=== PATIENT | female | born 1950 | race Caucasian/White ===

== ENCOUNTER → 2016-05-10 | Outpatient (CLI) | payer MEDICARE ==
[2015-04-11 11:44] VITALS: BP 132/67
[~2016-05-10] MED LIST: ALEN70TA5 PO; AMLO2.5T PO; AZEL23SP NS; DOCU-27 PO; ESTR1PAT10 TP; GABA-585 PO; HYDR-2680 PO; HYDR25TA9 PO; METH500T7 PO; OMEP20TA PO; OMEP40CA5 PO; ONDA4TAB7 PO; OXYC-323 PO; TRAZ50TA15 PO
--- NOTE | 2016-05-10 16:15 | KCIC ---
PROCEDURE Two-view chest HISTORY Bronchitis, cough for 2 months COMPARISON None FINDINGS Two views of the chest are submitted. Heart size is considered within normal limits. There is no dependent pleural fluid or pneumothorax. There is perihilar bronchial wall thickening. There is some mild, mostly linear opacity of the left lung base. IMPRESSION There is likely mild atelectasis left lung base. There is perihilar hilar bronchial wall thickening, could be seen with bronchitis. Electronically signed by: Tien Lucero MD (May 10, 2016 16:14:01)
== END | disposition home or self-care (01) ==
LOC: KCIC 14:26
PROVIDERS: ATTEND Nurse Practitioner Family
DX: J40 Bronchitis, not specified as acute or chronic (principal); J98.11 Atelectasis
CPT/HCPCS: 71020

== ENCOUNTER → 2016-08-16 | Outpatient (CLI) | payer BC, MEDICARE ==
[2015-04-11 11:44] VITALS: BP 132/67
--- NOTE | 2016-08-16 15:55 | KCIC ---
PROCEDURE MRI study of the left thumb without contrast HISTORY Left thumb pain. Patient fell in March 2016. Shooting pain for 2 months. Avulsion fracture. TECHNIQUE Noncontrast MRI sequences of the left thumb were performed in all 3 planes. COMPARISON Radiographic study dated August 07, 2016. FINDINGS There is moderate primary degenerative osteoarthritis of the 1st carpal metacarpal joint with spurring and joint effusion and subchondral marrow signal abnormality. There is dorsal and lateral subluxation of the 1st proximal phalanx with respect to the trapezium bone. There is disruption of the lateral collateral ligament of the 1st carpal metacarpal joint. The small avulsion fracture fragment seen on the radiographic study is old. No acute appearing fracture is evident. There is a cyst of the proximal aspect of the 1st proximal phalanx. No adjacent bone marrow edema is seen. This communicates with the anterior articular surface. There is mild degenerative spurring and small joint effusion of the 1st metacarpal phalangeal joint consistent with mild primary degenerative osteoarthritis. No tenosynovitis or tendon tear is seen. IMPRESSION Subluxation of the 1st carpal metacarpal joint with a tear of the lateral collateral ligament. 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 Mild primary degenerative osteoarthritis of the 1st metacarpal phalangeal joint. A degenerative cyst of the 1st proximal phalanx is seen. Electronically signed by: Edgar Rush MD (Aug 16, 2016 15:54:10)
== END | disposition home or self-care (01) ==
LOC: KCIC MRI 14:25
PROVIDERS: ATTEND Nurse Practitioner Gerontology
DX: M19.042 Primary osteoarthritis, left hand (principal)
CPT/HCPCS: 73218

== ENCOUNTER → 2016-08-16 | Outpatient (CLI) | payer BC, MEDICARE ==
[2015-04-11 11:44] VITALS: BP 132/67
--- NOTE | 2016-08-16 15:51 | KCIC ---
Ankle right, three views Indication: Right ankle pain. Time of exam 3:36 p.m. Three views of the right ankle demonstrate normal alignment. The ankle mortise is well maintained. The talar dome is smooth. No fracture or dislocation is seen. Impression: No acute bony abnormality is detected. Electronically signed by: Teodoro Escobar MD (Aug 16, 2016 15:50:09)
== END | disposition home or self-care (01) ==
LOC: KCIC 14:30
PROVIDERS: ATTEND Nurse Practitioner Family
DX: M25.571 Pain in right ankle and joints of right foot (principal)
CPT/HCPCS: 73610

== ENCOUNTER → 2016-08-24 | Outpatient (CLI) | payer BC, MEDICARE ==
[2015-04-11 11:44] VITALS: BP 132/67
--- NOTE | 2016-08-24 13:44 | RAD ---
APPROVED REPORT Patient Location : OUT-PATIENT Indications Lower Extremity Pain : Bilateral Stasis Disease Varicose Veins Skin Changes Past History Vein Stripping : APPEARS BILAT GSV AND LSV WERE STRIPPED IN 1972 Deep System Deep Venous Reflux present : Bilateral Findings REFLUX SEEN IN BILAT CFV'S GREATER THAN 3 SECONS. PARTIALLY COMPRESSIBLE VARICOSE VEIN WITH CHRONIC APPEARING CLOT SEEN IN RT MID THIGH. LARGE COMPLEX BUSTILLO'S CYST SEEN IN LT POP FOSSA MEASURING 7.8X1.4X1.1 CM Critical Notification Critical Value: No <Conclusion> No evidence of reflux with previous bilateral GSV ablation. Bilateral lesser saphenous veins not well visualized. Right sided varicose vein, with possible prior chronic thrombus. Large complex left sided bustillo's cyst.
== END | disposition home or self-care (01) ==
LOC: US 12:24
PROVIDERS: ATTEND Internal Medicine Cardiovascular Disease
DX: M71.22 Synovial cyst of popliteal space [Baker], left knee (principal); M79.605 Pain in left leg; I87.2 Venous insufficiency (chronic) (peripheral); I83.93 Asymptomatic varicose veins of bilateral lower extremities
CPT/HCPCS: 93970

== ENCOUNTER → 2016-11-16 | Outpatient (CLI) | payer BC ==
[2015-04-11 11:44] VITALS: BP 132/67
[~2016-11-16] MED LIST changes: +DOCU-109 PO; -DOCU-27 PO; -OMEP20TA PO; +OMEP20TA8 PO
--- NOTE | 2016-11-16 16:13 | KCIC ---
MRI of the brain without contrast 11/16/2016 Clinical History: Left-sided headaches for 6 months. Technique: Unenhanced T1-weighted sagittal and axial, T2-weighted axial and coronal and FLAIR, gradient echo and diffusion-weighted axial images of the brain were obtained. Findings: No previous imaging studies are available for comparison. There is generalized parenchymal atrophy. Patchy, confluent and multiple focal areas of increased signal intensity are seen within the periventricular and subcortical white matter of both cerebral hemispheres on the FLAIR and T2-weighted images consistent with areas of small vessel ischemic disease. No acute parenchymal abnormality is seen. No extra-axial fluid collection is seen. There is no MRI evidence of acute ischemia/infarction. Mild mucosal thickening is seen scattered throughout the paranasal sinuses. There is a minimal left mastoid effusion. Normal flow voids are seen within the major vascular structures surrounding the brain parenchyma. Impression: No acute parenchymal abnormality is seen. Electronically signed by: Dillan Tirado MD (11/16/2016 4:10 PM) [facility]
== END | disposition home or self-care (01) ==
LOC: KCIC MRI 13:57
PROVIDERS: ATTEND Family Medicine
DX: R51 Headache (principal)
CPT/HCPCS: 70551

== ENCOUNTER → 2016-12-25 | Outpatient (CLI) | payer BC ==
[2015-04-11 11:44] VITALS: BP 132/67
[2016-12-25 16:00] LABS: CREATININE 0.7 mg/dL (0.6-1.0); GFR 83.2
== END | disposition home or self-care (01) ==
LOC: LAB 15:19
PROVIDERS: ATTEND Psychiatry & Neurology Neurology
DX: R51 Headache (principal)
CPT/HCPCS: 36415; 82565; 84520; 85651; 86141

== ENCOUNTER → 2017-03-08 | Outpatient (CLI) | payer BC ==
[2015-04-11 11:44] VITALS: BP 132/67
--- NOTE | 2017-03-08 10:58 | KCIC ---
SACROILIAC JOINTS 3V Clinical Indication: Muscle weakness, back pain since 2004. History of multiple falls. Comparison: None. Findings: The sacroiliac joints are symmetric. Sacral arcuate lines are smooth. No acute pelvic fracture. No diastases of symphysis pubis. No obvious deformity of the hip joints. There is degenerative endplate spurring in the lower lumbar spine. Soft tissues unremarkable. IMPRESSION: Sacroiliac joints are symmetric. Electronically signed by: Juan C Grant MD (03/08/2017 10:55 AM) [id number]
== END | disposition home or self-care (01) ==
LOC: KCIC 09:07
PROVIDERS: ATTEND Family Medicine
DX: M54.9 Dorsalgia, unspecified (principal); M62.81 Muscle weakness (generalized); R29.6 Repeated falls
CPT/HCPCS: 72202

== ENCOUNTER → 2017-05-31 | Outpatient (CLI) | payer BC | END | disposition home or self-care (01) | LOC: KCIC US 14:55 | DX: M48.061 Spinal stenosis, lumbar region without neurogenic claudication (principal); M48.08 Spinal stenosis, sacral and sacrococcygeal region; G89.29 Other chronic pain | CPT/HCPCS: 72148; 76830; 76856 ==

== ENCOUNTER → 2018-03-12 | Outpatient (CLI) | payer BC ==
[2015-04-11 11:44] VITALS: BP 132/67
[~2018-03-12] MED LIST changes: -AMLO2.5T PO; +AMLO2.5T3 PO; +TRAZ-85 PO; -TRAZ50TA15 PO
--- NOTE | 2018-03-12 16:40 | KCIC ---
CHEST PA LATERAL Clinical indications: Cough. Difficulty breathing. Nonsmoker. Comparison: May 10, 2016. Findings: No acute lung infiltrate or pleural effusion or pulmonary edema or lung mass or pneumothorax is seen. The heart size, pulmonary vasculature, mediastinum and both johnie are unremarkable. The osseous structures appear intact. Impression: No acute radiographic abnormality is seen. Electronically signed by: Edgar Rush MD (03/12/2018 4:36 PM) [facility]
== END | disposition home or self-care (01) ==
LOC: KCIC 15:02
PROVIDERS: ATTEND Family Medicine
DX: R05 Cough (principal); R06.09 Other forms of dyspnea
CPT/HCPCS: 71046

== ENCOUNTER → 2018-06-05 | Outpatient (CLI) | payer BC ==
[2015-04-11 11:44] VITALS: BP 132/67
[~2018-06-05] MED LIST changes: -ALEN70TA5 PO; +ALEN70TA60 PO; -AMLO2.5T3 PO; +AMLO2.5T5 PO; +HYDR-2145 PO; -HYDR25TA9 PO; -OXYC-323 PO; +OXYC1TAB15 PO
--- NOTE | 2018-06-05 11:44 | KCIC ---
EXAM: Dual energy x-ray absorptiometry (DEXA). HISTORY: Postmenopausal female presents for osteoporosis screening. COMPARISON: 11/18/2013. TECHNIQUE: Dual energy x-ray absorptiometry of the lumbar spine and left hip was performed. Calculation of bone mineral density based on standard deviations above or below the expected young adult normal value (T-score) was completed. FINDINGS: The average bone mineral density in the 1st through 4th lumbar vertebrae is 1.117 g/cmxcm, corresponding with a T-score of 0.6. There has been a 5.2 percent increase in density of the lumbar spine compared to the prior study. The average total bone mineral density in the left hip is 0.940 g/cmxcm, corresponding with a T-score of -0.0. There has been a 3.5 percent decrease in density of the left hip compared to the prior study. IMPRESSION: Normal bone mineral density. Note: Definitions established by the World Health Organization: 1. Normal: T-score is -1.0 or above. 2. Osteopenia: T-score is between -1.0 and -2.5 . 3. Osteoporosis: T-score is -2.5 or below. Electronically signed by: Rufina Monzon MD (06/05/2018 11:41 AM) [facility]
--- NOTE | 2018-06-05 12:43 | KCIC ---
Bilateral digital screening mammograms with 3-D tomosynthesis: Reason for examination: Routine screening. Comparison is made to previous study dated 05/24/2014. Bilateral mammograms in CC and oblique projections were obtained with 2-D imaging and 3-D tomosynthesis imaging on a Siemens Inspiration unit and reviewed on the workstation. Interpretation was made with the benefit of CAD. The skin and nipples show no abnormalities. No abnormal axillary lymph nodes are seen. The breast parenchyma shows scattered fatty and fibroglandular density. (Breast density: Category B.) There are no dominant masses, suspicious calcifications or architectural distortion. Impression: No evidence of malignancy. Recommend routine screening. BI-RAD Category 1: Negative. "Our facility is accredited by the [employer] Mammography Program." This patient's information has been entered into a reminder system for the patient to be notified with the results of her examination and a target date for the next mammogram. Electronically signed by: Betsy Washington MD (06/05/2018 12:40 PM) [id number]
== END | disposition home or self-care (01) ==
LOC: KCIC DEXA 10:13
PROVIDERS: ATTEND Family Medicine
DX: Z12.31 Encounter for screening mammogram for malignant neoplasm of breast (principal); M81.0 Age-related osteoporosis without current pathological fracture
CPT/HCPCS: 77063; 77067; 77080

== ENCOUNTER → 2018-07-24 | Outpatient (CLI) | payer BC ==
[2015-04-11 11:44] VITALS: BP 132/67
[~2018-07-24] MED LIST changes: +ALEN70TA6 PO; -ALEN70TA60 PO; +TRAZ-118 PO; -TRAZ-85 PO
--- NOTE | 2018-07-24 09:43 | CARD ---
MR#: [id number] Date of Study: 07/24/2018 Ordering Physician: JIM MARCUS, Referring Physician: JIM MARCUS, Tech: Esther Morillo [facility] APPROVED REPORT EXAM: Two-dimensional and M-mode echocardiogram with Doppler and color Doppler. Other Information Quality : AverageHR: 75bpm Rhythm : NSRTechnically limited study due to INDICATION SOA 2D DIMENSIONS RVDd3.3 (2.9-3.5cm)Left Atrium(2D)4.1 (1.6-4.0cm) IVSd0.9 (0.7-1.1cm)Aortic Root(2D)2.7 (2.0-3.7cm) LVDd4.8 (3.9-5.9cm)LVOT Diameter1.9 (1.8-2.4cm) PWd0.7 (0.7-1.1cm)LVDs3.4 (2.5-4.0cm) FS (%) 29.1 %SV59.4 ml LVEF(%)55.8 (>50%) M-Mode DIMENSIONS Left Atrium(MM)4.15 (2.5-4.0cm)Aortic Root2.60 (2.2-3.7cm) Aortic Valve AoV Peak Wesley.216.9cm/sAoV VTI47.6cm AO Peak GR.18.8mmHgLVOT Peak Wesley.92.6cm/s AO Mean GR.10mmHgAVA (VMAX)1.21cm2 VIOLET (VTI)1.40cm2 Mitral Valve MV E Trbwgpvl94.8cm/sMV DECEL QSQH308aj MV A Vvoeuicv136.9cm/sE/A Ratio0.8 MV A Ebbprfkq46ba Pulmonary Valve PV Peak Tgounayu17.7cm/s Tricuspid Valve TR P. Euthkmxc646ia/sRAP CEPCCLRQ9mgSb TR Peak Gr.22paIbVPIS76bmRw LEFT VENTRICLE The left ventricle is normal size. There is normal left ventricular wall thickness. The left ventricu lar systolic function is normal and the ejection fraction is within normal range. The Ejection Fracti on is 55-60%. There is normal LV segmental wall motion. Transmitral Doppler flow pattern is Grade I-a bnormal relaxation pattern. RIGHT VENTRICLE The right ventricle is normal size. There is normal right ventricular wall thickness. The right ventr icular systolic function is normal. ATRIA The left atrium is mildly dilated. The right atrium size is normal. The interatrial septum is intact with no evidence for an atrial septal defect or patent foramen ovale as noted on 2-D or Doppler imagi ng. AORTIC VALVE The aortic valve is mildly calcified. The aortic valve is probably trileaflet. Aortic valve not well visualized. Doppler and Color Flow revealed no significant aortic regurgitation. There is mild aortic stenosis. Calculated aortic valve area is 1.4 cm2 with maximum pressure gradient of 19 mmHg and mean pressure gradient of 10 mmHg. There is no aortic valvular vegetation. MITRAL VALVE Mitral annular calcification is mild. There is no evidence of mitral valve prolapse. There is no mitr al valve stenosis. Doppler and Color-flow revealed trace mitral regurgitation. TRICUSPID VALVE The tricuspid valve is normal in structure and function. Doppler and Color Flow revealed trace tricus pid regurgitation. The PA pressure was estimated at 23 mmHg. There is no tricuspid valve prolapse or vegetation. There is no tricuspid valve stenosis. PULMONIC VALVE Doppler and Color Flow revealed no pulmonic valvular regurgitation. There is no pulmonic valvular ailin nosis. GREAT VESSELS The aortic root is normal in size. The ascending aorta is normal in size. The IVC is normal in size a nd collapses >50% with inspiration. PERICARDIAL EFFUSION There is no evidence of significant pericardial effusion. Critical Notification Critical Value: No <Conclusion> The left ventricular systolic function is normal and the ejection fraction is within normal range. Th e Ejection Fraction is 55-60%. There is normal LV segmental wall motion. There is mild aortic stenosis. Calculated aortic valve area is 1.4 cm2 with maximum pressure gradien t of 19 mmHg and mean pressure gradient of 10 mmHg. The aortic valve is mildly calcified. The aortic valve is probably trileaflet. Aortic valve not well visualized. Signed by : Eduardo Greene, Electronically Approved : 07/24/2018 09:42:22
== END | disposition home or self-care (01) ==
LOC: ECHO 08:55
PROVIDERS: ATTEND Internal Medicine Pulmonary Disease
DX: I35.0 Nonrheumatic aortic (valve) stenosis (principal); I70.0 Atherosclerosis of aorta
CPT/HCPCS: 93306

== ENCOUNTER → 2018-11-25 | Outpatient (CLI) | payer BC ==
[2015-04-11 11:44] VITALS: BP 132/67
--- NOTE | 2018-11-25 16:16 | KCIC ---
EXAM: RIGHT KNEE, 3 VIEWS. HISTORY: Right knee pain. COMPARISON: None. FINDINGS: There is chondrocalcinosis of the menisci. A calcific density mass along the lateral femoral epicondyles measures 13 x 9 mm. There are tiny osteophytes all 3 compartments with preservation of the joint spaces. Some capsular calcification is suspected posteriorly. There is no joint effusion. IMPRESSION: 1. Chondrocalcinosis of the menisci. Possible soft tissue tophus laterally. Correlate for crystalline arthropathy or CPPD. 2. Minimal tricompartmental osteoarthritis for patient age. Electronically signed by: Sushma Dodson MD (11/25/2018 4:13 PM) [facility]
== END | disposition home or self-care (01) ==
LOC: KCIC 09:08
PROVIDERS: ATTEND Family Medicine
DX: M11.261 Other chondrocalcinosis, right knee (principal); M25.761 Osteophyte, right knee; M17.11 Unilateral primary osteoarthritis, right knee
CPT/HCPCS: 73562

== ENCOUNTER → 2020-06-02 | Outpatient (CLI) | payer BC ==
[2015-04-11 11:44] VITALS: BP 132/67
[~2020-06-02] MED LIST changes: -ALEN70TA6 PO; +ALEN70TA71 PO; +METH-561 PO; -METH500T7 PO; +OMEP40CA45 PO; -OMEP40CA5 PO
--- NOTE | 2020-06-03 15:10 | KCIC ---
CT THORAX WO Indication: Reason: Chronic cough, productive at times. Chronic rhinitis. / Spl. Instructions: / History: Nonsmoker. *Automated exposure control (AEC) *Adjustment of mA and/or kV according to patient size *Use of iterative reconstruction technique *CT scan done according to ALARA, or ALARA/IMAGE GENTLY FINDINGS: The central airways are patent. There is no focal consolidation, pleural effusion or pneumothorax. The visualized thyroid gland is within normal limits. No lymphadenopathy is seen. The heart is normal in size with small pericardial effusion. Coronary artery calcifications are present. Aorta is normal in caliber with atherosclerotic calcifications. Images of the upper abdomen demonstrate calcified granulomas in the spleen and a punctate nonobstructing calculus in the right kidney. Degenerative and postoperative changes are seen in the spine. IMPRESSION: No focal consolidation. No discrete lung nodules greater than 3 mm are identified. MTDD
== END ==
LOC: KCIC CT 13:45
PROVIDERS: ATTEND Family Medicine
DX: R05 Cough (principal); I31.3 Pericardial effusion (noninflammatory)
CPT/HCPCS: 71250

== ENCOUNTER → 2020-11-09 | Outpatient (CLI) | payer BC, MEDICARE ==
[2015-04-11 11:44] VITALS: BP 132/67
[~2020-11-09] MED LIST changes: -OMEP40CA45 PO; +OMEP40CA7 PO
--- NOTE | 2020-11-09 14:18 | KCIC ---
INDICATION: Screening for osteopenia/osteoporosis. Reason: OSTEOPOROSIS / Spl. Instructions: / Hist ory: Postmenopausal evaluation COMPARISON: 06/05/2018 TECHNIQUE: Bone densitometry was performed through the forearm and proximal femur. IMPRESSION: Forearm: BMD: 0.46 T-Score: -2.0 Range: Osteopenic Proximal Femur: BMD: 0.93 T-Score: -0.1 Range: Normal. Decreased by 2 percent from prior. World Health Organization Criteria for Bone Density: T-Score: > -1.0: Normal Range < -1.0 to -2.5: Osteopenic Range < -2.5: Osteoporotic Range Electronically signed by: Ab Valiente MD (11/09/2020 2:16 PM) [id number]
--- NOTE | 2020-11-11 18:01 | KCIC ---
Bilateral digital screening mammograms with 3-D tomosynthesis: Reason for examination: Routine screening. Comparison is made to previous studies dated 06/05/2018 and 05/24/2014. Bilateral mammograms in CC and oblique projections were obtained with 2-D imaging and 3-D tomosynthes is imaging on a Siemens Inspiration unit and reviewed on the workstation. Interpretation was made estefanía barnett the benefit of CAD. The skin and nipples show no abnormalities. No abnormal axillary lymph nodes are seen. The breast par enchyma shows scattered fatty and fibroglandular density. (Breast density: Category B.) There continu es be a nodule consistent with an intramammary lymph node at the 9:00 C position of the right breast. There are no new dominant masses, suspicious calcifications or architectural distortion. A few benig n calcifications are again seen. Impression: No evidence of malignancy. Recommend routine screening. BI-RAD Category 2: Benign. "Our facility is accredited by the [employer] Mammography Program." This patient's information has been entered into a reminder system for the patient to be notified wit h the results of her examination and a target date for the next mammogram. Electronically signed by: Betsy Washington MD (11/11/2020 5:58 PM) [id number]
== END ==
LOC: KCIC MAMMO 12:42
PROVIDERS: ATTEND Family Medicine
DX: Z12.31 Encounter for screening mammogram for malignant neoplasm of breast (principal); M85.88 Other specified disorders of bone density and structure, other site; M81.0 Age-related osteoporosis without current pathological fracture
CPT/HCPCS: 77063; 77067; 77080; 77081